=== PATIENT | female | born 1980 | race Caucasian/White ===

== ENCOUNTER 2021-02-16 11:41 | Outpatient (REF) | payer OTHER, SELFPAY ==
[2021-02-16 13:13] LABS: Influenza A PCR NEGATIVE (Negative); Influenza B PCR NEGATIVE (Negative); Resp Syncy Virus RNA Qual PCR NEGATIVE (Negative); SARS COV2 PCR INHOUSE NEGATIVE (Negative)
== END 2021-02-16 11:42 | disposition home or self-care (01) ==
LOC: HO.LAB 11:41
PROVIDERS: Pediatrics; Visit Provider Internal Medicine
DX: Z20.822 Contact with and (suspected) exposure to COVID-19 (principal)
CPT/HCPCS: 0241U; 36415; C9803; U0003; U0005

== ENCOUNTER 2021-03-24 14:07 | Outpatient (REF) | payer OTHER, SELFPAY ==
[2021-03-24 15:15] LABS: COVID-19 Test Negative (Negative)
== END 2021-03-24 14:08 | disposition home or self-care (01) ==
LOC: HO.LAB 14:07
PROVIDERS: Visit Provider Internal Medicine
DX: Z20.822 Contact with and (suspected) exposure to COVID-19 (principal)
CPT/HCPCS: 36415; 87635; C9803

== ENCOUNTER 2021-03-26 10:31 | Outpatient (REF) | payer OTHER, SELFPAY ==
[2021-03-26 11:11] LABS: COVID-19 Test Positive (Negative)
== END 2021-03-26 10:32 | disposition home or self-care (01) ==
LOC: HO.LAB 10:31
PROVIDERS: Visit Provider Internal Medicine
DX: Z20.822 Contact with and (suspected) exposure to COVID-19 (principal)
CPT/HCPCS: 36415; 87635; C9803

== ENCOUNTER 2021-10-04 08:43 | Outpatient (REF) | payer OTHER, SELFPAY ==
[2021-10-04 09:22] LABS: COVID-19 Test Negative (Negative)
== END 2021-10-04 08:44 | disposition home or self-care (01) ==
LOC: HO.LAB 08:43
PROVIDERS: Visit Provider Internal Medicine
DX: Z20.822 Contact with and (suspected) exposure to COVID-19 (principal)
CPT/HCPCS: 87635; C9803

== ENCOUNTER 2021-10-08 13:13 | Outpatient (REF) | payer OTHER, SELFPAY ==
[2021-10-08 14:00] LABS: COVID-19 Test Negative (Negative)
== END 2021-10-08 13:14 | disposition home or self-care (01) ==
LOC: HO.LAB 13:13
PROVIDERS: Visit Provider Internal Medicine
DX: Z20.822 Contact with and (suspected) exposure to COVID-19 (principal)
CPT/HCPCS: 87635; C9803